=== PATIENT | female | born 1935 | race Caucasian/White ===

== ENCOUNTER 2016-12-28 12:51 | Emergency (ER) | payer OTHER ==
[~2016-12-28] VITALS: Ht 157.5 cm; Wt 59.9 kg
[~2016-12-28 12:51] MED LIST: ATEN-60; CHOL400C7; FLUO20CA19; HYDR25TA4; MELO-85; NUTRTAB; POTA10CA29; [UNRECOGNIZED DRUG - OTHER]
[2016-12-28] MEDS ORDERED: SODIUM CHLORIDE 0.9% 1,000 ML IVB ONE (13:26)
[2016-12-28 14:40] LABS: Basophils # (auto) 0.1 uL; Basophils % (auto) 1.2 % (0.0-2.0); DEFINITIVE VIEW TRANSMISSION; Eosinophils # (auto) 0 uL; Eosinophils % (auto) 0.3 % (0.0-7.0); Hematocrit 31.7 % (36.0-46.0); Hemoglobin 10.3 g/dL (12.2-16.2); Lymphocytes # (auto) 1.6 uL; Lymphocytes % (auto) 12.6 % (10.0-50.0); Mean Corpuscular Hemoglobin 34.1 pg (28.0-32.0); Mean Corpuscular Hgb Conc. 32.5 g/dL (32.0-36.0); Mean Corpuscular Volume 104.7 fL (80.0-100.0); Mean Platelet Volume 9.1 fL (7.4-10.4); Monocytes # (auto) 0.5 uL; Monocytes % (auto) 3.6 % (0.0-12.0); Neutrophils # (auto) 10.4 uL; Neutrophils % (auto) 82.3 % (37.0-80.0); Platelet Count (auto) 77 10^3/uL (140-450); Red Cell Distribution Width 17.5 % (11.6-16.0); SUSPECT VIEW TRANSMISSION; White Blood Cell 12.7 10^3/uL (4.4-10.8)
[2016-12-28 15:01] LABS: INR 1.15 (0.9-1.15); Partial Thromboplastin Time 23.6 sec (22.64-33.71); Prothrombin Time 11.8 sec (9.37-12.3)
[2016-12-28 15:06] LABS: Bilirubin, Total 0.5 mg/dL (0.2-1.0); Calcium 8.9 mg/dL (8.5-10.1); Magnesium 2.3 mg/dL (1.6-2.6); Potassium 3.8 mmol/L (3.5-5.1); Total Protein 7.1 g/dL (6.4-8.2)
[2016-12-28 17:41] LABS: Urine RBC None Seen /hpf (0 - 4)
[2016-12-28 18:11] LABS: Urine Bilirubin Negative (Negative); Urine Blood Negative /uL (Negative); Urine Color Yellow (Yellow); Urine Glucose Normal (Normal); Urine Ketone Negative (Negative); Urine Mucus FEW (None Seen); Urine Squamous Epithelial Cell MOD /hpf (<5); Urine WBC Clumps PRESENT /hpf (None Seen)
[2016-12-28 18:14] LABS: Urine Nitrite POSITIVE (Negative)
[2016-12-28] MEDS ORDERED: cefTRIAXone 1GM/50ML D5W 50 ML IV ONE (20:00)
[2016-12-28 22:46] VITALS: BP 150/70
== END 2016-12-28 22:58 | disposition home or self-care (01) ==
LOC: EDUNIT# 12:51 → EDBD 12:58 → ER 12:58
DX: D50.9 Iron deficiency anemia, unspecified (principal); R42 Dizziness and giddiness; G45.9 Transient cerebral ischemic attack, unspecified; D69.6 Thrombocytopenia, unspecified; E11.9 Type 2 diabetes mellitus without complications; I10 Essential (primary) hypertension; M19.90 Unspecified osteoarthritis, unspecified site
CPT/HCPCS: 36415; 70450; 71010; 80053; 81001; 82962; 83735; 84484; 85025; 85610; 85730; 93005; 94761; 96361; 96365; 99285; J0696; J7030

== ENCOUNTER 2017-01-08 04:21 | Emergency (ER) | payer OTHER ==
[~2017-01-08] VITALS: Ht 157.5 cm; Wt 54.4 kg
[2017-01-08 05:11] LABS: Basophils # (auto) 2.7 uL; Basophils % (auto) 49.2 % (0.0-2.0); DEFINITIVE VIEW TRANSMISSION; Eosinophils # (auto) 0 uL; Hematocrit 28.6 % (36.0-46.0); Hemoglobin 9.1 g/dL (12.2-16.2); Lymphocytes # (auto) 2.1 uL; Lymphocytes % (auto) 38.5 % (10.0-50.0); Mean Corpuscular Hemoglobin 33.8 pg (28.0-32.0); Mean Corpuscular Hgb Conc. 31.9 g/dL (32.0-36.0); Mean Corpuscular Volume 106.1 fL (80.0-100.0); Mean Platelet Volume 9.1 fL (7.4-10.4); Monocytes # (auto) 0.4 uL; Monocytes % (auto) 7.3 % (0.0-12.0); Neutrophils # (auto) 0.3 uL; Platelet Count (auto) 79 10^3/uL (140-450); Red Cell Distribution Width 18.5 % (11.6-16.0); SUSPECT VIEW TRANSMISSION; White Blood Cell 5.4 10^3/uL (4.4-10.8)
[2017-01-08 05:32] LABS: Partial Thromboplastin Time 31.5 sec (22.64-33.71)
[2017-01-08 05:34] LABS: Albumin 3.8 g/dL (3.4-5.0); Anion Gap 7 (5-15); Aspartate Aminotransferase 14 U/L (15-37); BUN/Creatinine Ratio 16.9; Blood Urea Nitrogen 11 mg/dL (7-18); Calcium 8.2 mg/dL (8.5-10.1); Carbon Dioxide 25 mmol/L (21-32); Chloride 111 mmol/L (98-107); GFR African American 113 mL/min; GFR Non-African American 93 mL/min; Glucose 95 mg/dL (74-106); Potassium 3.5 mmol/L (3.5-5.1); Sodium 143 mmol/L (136-145)
[2017-01-08 05:37] LABS: INR 1.5 (0.9-1.15); Prothrombin Time 15.4 sec (9.37-12.3)
[2017-01-08 05:38] LABS: Alkaline Phosphatase 66 U/L (45-117); Bilirubin, Total 0.5 mg/dL (0.2-1.0); Total Protein 6.6 g/dL (6.4-8.2)
[2017-01-08] MEDS ORDERED: SODIUM CHLORIDE 0.9% 1,000 ML IV ONE (05:40)
[2017-01-08 05:46] LABS: B-Type Natriuretic Peptide 177.88 pg/mL (0-100); Temperature: 21.6 C (20.0-25.0)
[2017-01-08 08:08] LABS: Urine Bilirubin Negative (Negative); Urine Color Yellow (Yellow); Urine Glucose Normal (Normal); Urine Ketone TRACE (Negative); Urine Nitrite Negative (Negative); Urine RBC 36 /hpf (0 - 4); Urine Squamous Epithelial Cell FEW /hpf (<5); Urine Urobilinogen Normal (Negative); Urine pH 6.5 (5.0-8.0)
[2017-01-08 08:15] LABS: Urine Blood 2+ /uL (Negative)
[2017-01-08] MEDS ORDERED: NITROFURANTOIN (MONO) 100 mg CAP PO ONE ×2 (10:15)
[2017-01-08] MEDS ORDERED: FUROSEMIDE 40 MG/4 ML VIAL IV ONE (10:15)
[2017-01-08 10:41] VITALS: BP 167/83
== END 2017-01-08 11:27 | disposition home or self-care (01) ==
LOC: ER 04:21
DX: N39.0 Urinary tract infection, site not specified (principal); I11.0 Hypertensive heart disease with heart failure; I50.9 Heart failure, unspecified; E11.9 Type 2 diabetes mellitus without complications; M19.90 Unspecified osteoarthritis, unspecified site; Z88.0 Allergy status to penicillin; Z79.899 Other long term (current) drug therapy
CPT/HCPCS: 36415; 71010; 74176; 80053; 81001; 83880; 84484; 85025; 85610; 85730; 93005; 96361; 96374; 99285; J1940; J7030

== ENCOUNTER 2017-02-15 21:49 | Observation (INO) | payer OTHER ==
[~2017-02-15] VITALS: Ht 160 cm; Wt 59.0 kg
[2017-02-15 22:34] LABS: DEFINITIVE VIEW TRANSMISSION; Hematocrit 27.6 % (36.0-46.0); Hemoglobin 9.5 g/dL (12.2-16.2); Mean Corpuscular Hemoglobin 35.8 pg (28.0-32.0); Mean Corpuscular Hgb Conc. 34.3 g/dL (32.0-36.0); Mean Corpuscular Volume 104.3 fL (80.0-100.0); Platelet Count (auto) 88 10^3/uL (140-450); Red Cell Distribution Width 17.5 % (11.6-16.0); SUSPECT VIEW TRANSMISSION
[2017-02-15 22:42] LABS: Promyelocytes % 0
[2017-02-15 22:54] LABS: Albumin 4.3 g/dL (3.4-5.0); BUN/Creatinine Ratio 23.7; Bilirubin, Total 0.6 mg/dL (0.2-1.0); Calcium 8.9 mg/dL (8.5-10.1); Potassium 3.7 mmol/L (3.5-5.1); Total Protein 7.4 g/dL (6.4-8.2)
[2017-02-15 22:57] LABS: INR 1.11 (0.9-1.15); Partial Thromboplastin Time 26.2 sec (22.64-33.71)
[2017-02-15 23:12] LABS: B-Type Natriuretic Peptide 71.6 pg/mL (0-100); Temperature: 21.9 C (20.0-25.0)
[2017-02-15 23:29] LABS: Macrocytosis Moderate; Metamyelocytes % 2; Myelocytes % 1; Platelet Estimate Decreased; Reactive Lymphocytes 2
[2017-02-16 01:41] LABS: DEFINITIVE VIEW TRANSMISSION; Hematocrit 28.9 % (36.0-46.0); Hemoglobin 9.5 g/dL (12.2-16.2); Mean Corpuscular Hemoglobin 34.9 pg (28.0-32.0); Mean Corpuscular Hgb Conc. 32.9 g/dL (32.0-36.0); Mean Corpuscular Volume 106.2 fL (80.0-100.0); Mean Platelet Volume 8.7 fL (7.4-10.4); Platelet Count (auto) 93 10^3/uL (140-450); Red Cell Distribution Width 17.2 % (11.6-16.0); SUSPECT VIEW TRANSMISSION; White Blood Cell 27.9 10^3/uL (4.4-10.8)
[2017-02-16 01:50] LABS: Promyelocytes % 0; Reactive Lymphocytes 0
[2017-02-16 04:31] LABS: Urine Bilirubin Negative (Negative); Urine Blood Negative /uL (Negative); Urine Color Yellow (Yellow); Urine Glucose Normal (Normal); Urine Ketone Negative (Negative); Urine Nitrite Negative (Negative); Urine Urobilinogen Normal (Negative); Urine pH 5.5 (5.0-8.0)
[2017-02-16 04:32] LABS: Urine Ca Oxalate Crystal FEW (None Seen); Urine Mucus FEW (None Seen); Urine RBC <1 /hpf (0 - 4); Urine Squamous Epithelial Cell FEW /hpf (<5)
[2017-02-16 05:06] VITALS: BP 144/72
[2017-02-16 07:54] LABS: Metamyelocytes % 4; Myelocytes % 5
[2017-02-16 07:55] LABS: Macrocytosis Moderate
[2017-02-16 07:56] LABS: Platelet Estimate Decreased
[2017-02-16 07:57] LABS: Burr Cells FEW; Ovalocytes FEW; Stomatocytes Few; Tear Drop Cells FEW
[2017-02-16 07:58] LABS: Large Platelets FEW
== END 2017-02-16 06:19 | disposition home or self-care (01) | DRG 103 ==
LOC: EDBD 21:49 → ER 21:56 → OVERFLOW 02-16 02:17 → ER 02-16 06:18
PROVIDERS: ADMIT Emergency Medicine; ATTEND Emergency Medicine
DX: G44.209 Tension-type headache, unspecified, not intractable (principal); R06.02 Shortness of breath; R05 Cough; R09.89 Other specified symptoms and signs involving the circulatory and respiratory systems; M13.80 Other specified arthritis, unspecified site; E11.9 Type 2 diabetes mellitus without complications; I11.0 Hypertensive heart disease with heart failure; I50.9 Heart failure, unspecified; L30.9 Dermatitis, unspecified; D72.823 Leukemoid reaction; D72.829 Elevated white blood cell count, unspecified; I70.0 Atherosclerosis of aorta
CPT/HCPCS: 36415; 70450; 71010; 80053; 81001; 83605; 83880; 85007; 85027; 85379; 85610; 85730; 87040; 93005; 99285; G0378

== ENCOUNTER 2017-02-28 16:30 | Emergency (ER) | payer OTHER ==
[~2017-02-28] VITALS: Ht 154.9 cm; Wt 54.4 kg
[2017-02-28 17:14] LABS: Urine Bilirubin Negative (Negative); Urine Blood Negative /uL (Negative); Urine Color Yellow (Yellow); Urine Glucose Normal (Normal); Urine Ketone Negative (Negative); Urine Mucus FEW (None Seen); Urine Nitrite Negative (Negative); Urine RBC 1 /hpf (0 - 4); Urine Squamous Epithelial Cell FEW /hpf (<5); Urine pH 6.5 (5.0-8.0)
[2017-02-28 17:53] LABS: DEFINITIVE VIEW TRANSMISSION; Hematocrit 27.8 % (36.0-46.0); Hemoglobin 9.4 g/dL (12.2-16.2); Mean Corpuscular Hemoglobin 35.5 pg (28.0-32.0); Mean Corpuscular Hgb Conc. 33.7 g/dL (32.0-36.0); Mean Corpuscular Volume 105.3 fL (80.0-100.0); Mean Platelet Volume 9.2 fL (7.4-10.4); Platelet Count (auto) 99 10^3/uL (140-450); Red Cell Distribution Width 16.5 % (11.6-16.0); SUSPECT VIEW TRANSMISSION
[2017-02-28] MEDS ORDERED: SODIUM CHLORIDE 0.9% 500 ML IV ONE (18:00)
[2017-02-28 18:01] LABS: White Blood Cell 73.4 10^3/uL (4.4-10.8)
[2017-02-28 18:13] LABS: Anion Gap 8 (5-15); Aspartate Aminotransferase 20 U/L (15-37); Blood Urea Nitrogen 9 mg/dL (7-18); Calcium 8.8 mg/dL (8.5-10.1); Carbon Dioxide 25 mmol/L (21-32); Chloride 105 mmol/L (98-107); GFR African American 96 mL/min; GFR Non-African American 79 mL/min; Glucose 95 mg/dL (74-106); Potassium 3.9 mmol/L (3.5-5.1); Sodium 138 mmol/L (136-145)
[2017-02-28 18:17] LABS: Promyelocytes % 0; Reactive Lymphocytes 0
[2017-02-28 18:18] LABS: Alkaline Phosphatase 105 U/L (45-117); Bilirubin, Total 0.5 mg/dL (0.2-1.0); Total Protein 7.8 g/dL (6.4-8.2)
[2017-02-28 18:46] VITALS: BP 131/76
[2017-02-28 19:48] LABS: Metamyelocytes % 7; Myelocytes % 9
[2017-02-28 19:49] LABS: Macrocytosis Moderate
[2017-02-28 19:50] LABS: Giant Platelets Few; Large Platelets FEW; Platelet Estimate Decrea
[2017-02-28 19:51] LABS: Polychromasia Slight
[2017-02-28 19:54] LABS: Stomatocytes Few
[2017-02-28 19:56] LABS: Tear Drop Cells FEW
== END 2017-02-28 21:08 | disposition home or self-care (01) ==
LOC: EDBD 16:30 → ER 16:30
DX: N39.0 Urinary tract infection, site not specified (principal); I11.0 Hypertensive heart disease with heart failure; I50.9 Heart failure, unspecified; E11.9 Type 2 diabetes mellitus without complications; M19.90 Unspecified osteoarthritis, unspecified site; F17.210 Nicotine dependence, cigarettes, uncomplicated; Z88.0 Allergy status to penicillin
CPT/HCPCS: 36415; 70450; 71020; 80053; 81001; 84484; 85007; 85027; 93005; 94761; 99285; J7030

== ENCOUNTER 2017-03-24 17:51 | Emergency (ER) | payer OTHER ==
[~2017-03-24] VITALS: Ht 152.4 cm; Wt 61.2 kg
[2017-03-24 19:36] LABS: DEFINITIVE VIEW TRANSMISSION; Hematocrit 16.7 % (36.0-46.0); Mean Corpuscular Hemoglobin 35.2 pg (28.0-32.0); Mean Corpuscular Hgb Conc. 33.6 g/dL (32.0-36.0); Mean Corpuscular Volume 104.6 fL (80.0-100.0); Mean Platelet Volume 9.6 fL (7.4-10.4); Platelet Count (auto) 55 10^3/uL (140-450); Red Cell Distribution Width 18.1 % (11.6-16.0); SUSPECT VIEW TRANSMISSION
[2017-03-24 19:45] LABS: Hemoglobin 5.6 g/dL (12.2-16.2); White Blood Cell 84.3 10^3/uL (4.4-10.8)
[2017-03-24 19:47] LABS: Anion Gap 10 (5-15); Aspartate Aminotransferase 15 U/L (15-37); BUN/Creatinine Ratio 13.8; Blood Urea Nitrogen 12 mg/dL (7-18); Calcium 8.5 mg/dL (8.5-10.1); Carbon Dioxide 24 mmol/L (21-32); Chloride 106 mmol/L (98-107); GFR African American 81 mL/min; GFR Non-African American 67 mL/min; Glucose 105 mg/dL (74-106); Potassium 4.2 mmol/L (3.5-5.1); Promyelocytes % 0; Reactive Lymphocytes 0; Sodium 140 mmol/L (136-145)
[2017-03-24 19:51] LABS: Alkaline Phosphatase 110 U/L (45-117); Bilirubin, Total 0.6 mg/dL (0.2-1.0); Total Protein 6.9 g/dL (6.4-8.2)
[2017-03-24] MEDS ORDERED: SODIUM CHLORIDE 0.9% 1,000 ML IV ONE (20:15)
[2017-03-24 20:37] LABS: Partial Thromboplastin Time 30.1 sec (22.64-33.71)
[2017-03-24 20:52] LABS: INR 1.19 (0.9-1.15); Prothrombin Time 12.8 sec (9.37-12.3)
[2017-03-24 21:00] LABS: Amylase 19 U/L (25-115)
[2017-03-24] MEDS ORDERED: ONDANSETRON HCL 4 MG/2 ML VIAL IV ONE ×2 (21:00→23:45)
[2017-03-24 21:11] LABS: Metamyelocytes % 8; Myelocytes % 7; Platelet Estimate Decreased
[2017-03-24 21:12] LABS: Macrocytosis Moderate
[2017-03-24 21:14] LABS: Large Platelets FEW; Polychromasia Slight; Tear Drop Cells FEW
[2017-03-24 21:16] LABS: Stomatocytes Few
[2017-03-24 22:24] VITALS: BP 100/50
[2017-03-24 22:39] VITALS: BP 118/56
[2017-03-24 22:54] VITALS: BP 122/65
[2017-03-24 23:09] VITALS: BP 111/60
[2017-03-24] MEDS ORDERED: HYDROmorphone HCL 2 MG/ML VL IV ONE (23:45)
[2017-03-24 23:53] VITALS: BP 123/55
[2017-03-24 23:58] VITALS: BP 121/47
[2017-03-25 00:13] VITALS: BP 125/55
[2017-03-25 00:28] VITALS: BP 117/55
[2017-03-25 01:32] VITALS: BP 136/98
== END 2017-03-25 02:06 | disposition short-term general hospital (02) ==
LOC: EDBD 17:51 → ER 18:10
DX: I62.02 Nontraumatic subacute subdural hemorrhage (principal); D72.829 Elevated white blood cell count, unspecified; D69.6 Thrombocytopenia, unspecified; C85.90 Non-Hodgkin lymphoma, unspecified, unspecified site; E78.00 Pure hypercholesterolemia, unspecified; D50.9 Iron deficiency anemia, unspecified; Z88.0 Allergy status to penicillin; M19.90 Unspecified osteoarthritis, unspecified site; E11.9 Type 2 diabetes mellitus without complications; I50.9 Heart failure, unspecified; I11.0 Hypertensive heart disease with heart failure; F17.210 Nicotine dependence, cigarettes, uncomplicated; Z86.73 Personal history of transient ischemic attack (TIA), and cerebral infarction without residual deficits
CPT/HCPCS: 36415; 70450; 71010; 71250; 74176; 80053; 80320; 82150; 83605; 83690; 83735; 84484; 85007; 85027; 85610; 85730; 86850; 86900; 86901; 86920; 87040; 96361; 96374; 96375; 96376; 99291; J1170; J2405; J7030; P9016; 36430; 93005

== ENCOUNTER 2017-05-04 20:21 | Emergency (ER) | payer OTHER ==
[~2017-05-04] VITALS: Ht 170.2 cm; Wt 59.0 kg
[2017-05-04 22:52] LABS: CONDITION Y; DEFINITIVE Y; Mean Corpuscular Hemoglobin 31.5 pg (28.0-32.0); Mean Corpuscular Volume 89.9 fL (80.0-100.0); SUSPECT Y; White Blood Cell 25.5 10^3/uL (4.4-10.8)
[2017-05-04 23:07] LABS: Albumin 3.6 g/dL (3.4-5.0); Anion Gap 10 (5-15); Aspartate Aminotransferase 7 U/L (15-37); Blood Urea Nitrogen 22 mg/dL (7-18); Calcium 7.9 mg/dL (8.5-10.1); Carbon Dioxide 23 mmol/L (21-32); Chloride 109 mmol/L (98-107); GFR African American 58 mL/min; GFR Non-African American 48 mL/min; Glucose 125 mg/dL (74-106); Magnesium 2.3 mg/dL (1.6-2.6); Potassium 4.6 mmol/L (3.5-5.1); Sodium 142 mmol/L (136-145)
[2017-05-04 23:08] LABS: Urine RBC None Seen /hpf (0 - 4)
[2017-05-04 23:12] LABS: Alkaline Phosphatase 100 U/L (45-117); Bilirubin, Total 0.4 mg/dL (0.2-1.0); Total Protein 7.3 g/dL (6.4-8.2)
[2017-05-04 23:16] LABS: Hemoglobin 4.6 g/dL (12.2-16.2); Partial Thromboplastin Time 26.3 sec (22.64-33.71); Platelet Count (auto) 7 10^3/uL (140-450)
[2017-05-04 23:17] LABS: Promyelocytes % 0
[2017-05-04 23:18] LABS: INR 1.18 (0.9-1.15); Prothrombin Time 12.9 sec (9.37-12.3)
[2017-05-04 23:23] LABS: Urine Bilirubin Negative (Negative); Urine Blood Negative /uL (Negative); Urine Color Yellow (Yellow); Urine Glucose Normal (Normal); Urine Ketone Negative (Negative); Urine Nitrite Negative (Negative); Urine Urobilinogen Normal (Negative)
[2017-05-04] MEDS ORDERED: VANCOMYCIN 1GM/250ML D5W 250 ML IV ONE (23:30)
[2017-05-04] MEDS ORDERED: LEVOFLOXACIN 500MG 100 ML IV ONE (23:30)
[2017-05-04 23:39] LABS: Metamyelocytes % 3; Myelocytes % 1
[2017-05-04 23:40] LABS: Platelet Estimate Markedly Decreased; Reactive Lymphocytes 1
[2017-05-05 01:14] VITALS: BP 143/54
[2017-05-05 01:29] VITALS: BP 138/77
[2017-05-05] MEDS ORDERED: ALBUTEROL SULF 2.5 MG/0.5ML(0.5%) NEB SOLN NEB ONE (02:00)
[2017-05-05] MEDS ORDERED: methylPREDNISolone SOD SUCC 125 MG/2 ML VL ONE (02:29)
[2017-05-05] MEDS ORDERED: methylPREDNISolone SOD SUCC 125 MG/2 ML VL IV ONE (02:45)
[2017-05-05] MEDS ORDERED: ACETAMINOPHEN 650 MG RECT SUPP PR ONE ×2 (03:11→03:30)
[2017-05-05 05:24] VITALS: BP 106/48
[2017-05-05 05:39] VITALS: BP 102/47
[2017-05-05 06:30] VITALS: BP 100/50
== END 2017-05-05 00:33 | disposition critical access hospital (66) ==
LOC: EDBD 20:21 → ER 20:27
DX: A41.9 Sepsis, unspecified organism (principal); I62.00 Nontraumatic subdural hemorrhage, unspecified; D69.6 Thrombocytopenia, unspecified; D64.9 Anemia, unspecified; M19.90 Unspecified osteoarthritis, unspecified site; E11.9 Type 2 diabetes mellitus without complications; I11.0 Hypertensive heart disease with heart failure; I50.9 Heart failure, unspecified; F17.210 Nicotine dependence, cigarettes, uncomplicated; Z86.73 Personal history of transient ischemic attack (TIA), and cerebral infarction without residual deficits; Z88.0 Allergy status to penicillin; Z79.899 Other long term (current) drug therapy
CPT/HCPCS: 36415; 36430; 51702; 70450; 71010; 80053; 80307; 80320; 81001; 82962; 83605; 83735; 84484; 85007; 85027; 85610; 85730; 86850; 86900; 86901; 86920; 87040; 87086; 93005; 94640; 96365; 96368; 96375; 99285; J1956; J2930; J3370; P9016; P9035; 94761